=== PATIENT | male | born 1965 | race Caucasian/White ===

== ENCOUNTER 2021-04-05 16:55 | Emergency (ER) | payer OTHER, SELFPAY ==
--- NOTE | 2021-04-05 17:08 | ED.URI ---
HPI - URI/Sore Throat General Chief Complaint: Upper Respiratory Infection Stated Complaint: cough Time Seen by Provider: 04/05/21 17:08 Source: patient Mode of arrival: ambulatory Limitations: no limitations History of Present Illness HPI Narrative: Herberth Is a 56-year-old male patient who ambulated into the [facility]. Patient states he has had a cough since 03/28/2021. Patient denies any other symptoms. Patient states she has been taking day and nighttime cold medicine. And halls cough drops with minimal relief. Patient states he does not want prednisone or albuterol; patient had similar symptoms the beginning of February. Which resolved in 10 days. MD elicited complaint: cough Related Data Home Medications Medication Instructions Recorded Confirmed No Home Medications 04/05/21 04/05/21 Allergies Allergy/AdvReac Type Severity Reaction Status Date / Time No Known Allergies Allergy Verified 04/05/21 17:21 Review of Systems Review of Systems: CONSTITUTIONAL: Denies body aches, fever, chills, or sweats. EYES: Denies visual changes, redness, or discharge. ENT: Denies rhinorrhea, congestion, sore throat, or otalgia. CARDIOVASCULAR: Denies chest pain, palpitations, or edema. RESPIRATORY: +cough denies dyspnea. GASTROINTESTINAL: Denies abdominal pain, nausea, vomiting, or diarrhea. GENITOURINARY: Denies dysuria or hematuria. SKIN: Denies rash, itching, or wounds. MUSCULOSKELETAL: Denies back pain, joint pain, or myalgia. NEUROLOGIC: Denies headache, numbness, tingling, or weakness. PSYCH: Denies depression or anxiety. All systems reviewed & are unremarkable except as noted in HPI and below PMFSH Comments At time of signature, I have reviewed and agree with nursing past medical, surgical, social and family history unless otherwise noted. Please see nursing chart for further information. There is no relevant family history pertinent to the presenting complaint Exam Narrative: GENERAL: Well-appearing, well-nourished, and in no acute distress. HEAD: Normocephalic, atraumatic. EYES: EOMI. No redness or drainage. Conjunctivae normal. ENT: Mucous membranes pink and moist. Nares clear. No rhinorrhea. TMs normal bilaterally. Posterior pharynx with minimal edema and moderate amount of clear postnasal drainage noted.. Uvula midline. NECK: Normal AROM. Supple. No lymphadenopathy. CHEST: No respiratory distress. Clear to auscultation. MUSCULOSKELETAL: No bony tenderness. EXTREMITIES: Normal range of motion. No edema. SKIN: Warm, dry, no rash. Capillary refill normal. Normal skin turgor. NEURO: No focal deficits. Alert and oriented x3. Gait steady. PSYCH: Normal affect. No signs of depression or anxiety. Course Course Emergency Course: Patient was examined. Patient's lungs are completely clear. Patient has no other symptoms besides a cough. Patient was noted to have clear postnasal drainage. Patient states he is not interested in taking albuterol or prednisone for the cough. Patient was not sure to continue [id number] cough medicines and add Zyrtec or Claritin to his regimen daily Level of Care: Express Care Visit MDM - URI/Sore Throat MDM Narrative Medical decision making narrative: Patient's lungs are clear. Patient has had symptoms for 7 days. Patient has no fever, chills, or any other symptoms. Patient does not want prednisone or albuterol. Patient will continue [id number] medications. Patient will follow up with his primary care physician in 10 to 14 days for continued symptoms. Differential Diagnosis Differential diagnosis: Likely upper respiratory infection, otitis media, viral infection, influenza and other (Cough) Medical Records Attestation: I reviewed the patient's medical records. Critical Care Time Critical Care Time Critical Care Time: No Discharge Plan Discharge Clinical Impression: Cough Patient Disposition: Home, Self-Care Condition: Stable Instructions:
[2021-04-05 17:11] VITALS: BP 122/72; PULSE 63; RESP 18; TEMP 36.8; O2SAT 99
== END 2021-04-05 17:27 | disposition home or self-care (01) ==
PROVIDERS: Emergency Provider Nurse Practitioner Family
DX: R05.9 Cough, unspecified (principal)
CPT/HCPCS: 99211; G0463

== ENCOUNTER → 2022-11-27 10:24 | Outpatient (CLI) | payer OTHER, SELFPAY ==
--- NOTE | ~2022-11-27 | MR_ITS ---
EXAMINATION: MR shoulder RT wo con, MR clavicle RT wo con DATE: 11/27/2022 11:07 INDICATION: Right shoulder and clavicle pain TECHNIQUE: 1. Magnetic resonance imaging (MRI) of the right shoulder was performed without intravenous contrast. Sequences included axial PD-weighted FS FSE, coronal oblique PD-weighted FS FSE, coronal oblique T2- weighted FS FSE, sagittal PD-weighted FS FSE, and sagittal T1-weighted SE. 2. MRI of the right clavicle was performed without intravenous contrast. Sequences included large fie ld-of-view coronal T1-weighted FSE including the bilateral clavicles and shoulders and smaller field of view imaging of the right clavicle with axial, sagittal and coronal T1-weighted FSE and fluid sens itive FSE STIR. COMPARISON: None. FINDINGS: Coracoacromial arch: The acromion undersurface is curved in morphology (type II). Mild thickening and tiny enthesopathic o ssicle at the acromial insertion of the coracoacromial ligament. Mild acromioclavicular osteoarthriti s. Rotator cuff: Changes consistent with prior rotator cuff repair with suture anchor sites along the middle and poste rior facets of the greater tuberosity. Mild supraspinatus and infraspinatus tendinopathy without disc rete tear. Mild subscapularis tendinopathy without discrete tear. The teres minor tendon is normal. N ormal rotator cuff muscle bulk and signal. Biceps tendon, glenoid labrum and glenohumeral cartilage: Percent bicipital tenodesis with anchor site below level of the intertubercular groove. Mild partial- thickness cartilage loss with smooth chondral surface and without degenerative subchondral changes al albino the apex and inferomedial aspect of the humeral head as well as along the cephalad third of the g lenoid. There is a tear of the posterior superior to posterior glenoid labrum extending from the 11:0 0 to the 8:00 position. Fluid: Physiologic amount of fluid in the glenohumeral joint and biceps tendon sheath. No loose osteochondr al bodies. Small amount of fluid in the subacromial/subdeltoid bursa consistent with mild bursitis. Bones: Bone alignment is normal. Normal marrow signal with fracture or pathologic marrow replacing process. Minimal osteoarthritis at the bilateral sternoclavicular joints. Moderate osteoarthritis at the left acromioclavicular joint with moderate-sized inferiorly directed osteophytes arising from the lateral head of the left clavicle. Bilateral coracoclavicular ligaments appear normal. The bilateral paracoli c clavicular soft tissues are unremarkable. IMPRESSION: 1. Mild right glenohumeral osteoarthritis with tear of the posterior superior to posterior glenoid la maria elena. 2. Mild tendinopathy without discrete tear at the distal infraspinatus and subscapularis tendons with suggestion of prior rotator cuff repair at the humeral insertion of the distal infraspinatus and pot entially teres minor tendons. 3. Mild osteoarthritis at the right acromioclavicular and bilateral sternoclavicular joints and moder ate osteoarthritis at the left acromioclavicular joint.. 4. Mild subacromial/subdeltoid bursitis. 5. Postoperative change of prior bicipital tenodesis. Reviewed, dictated and finalized at location A. IMPRESSION: 1. Mild right glenohumeral osteoarthritis with tear of the posterior superior t o posterior glenoid labrum. 2. Mild tendinopathy without discrete tear at the distal infraspinatus and subs capularis tendons with suggestion of prior rotator cuff repair at the humeral i nsertion of the distal infraspinatus and potentially teres minor tendons. 3. Mild osteoarthritis at the right acromioclavicular and bilateral sternoclavi cular joints and moderate osteoarthritis at the left acromioclavicular joint.. 4. Mild subacromial/subdeltoid bursitis. 5. Postoperative baumann
== END ==
DX: M19.011 Primary osteoarthritis, right shoulder (principal); S43.431A Superior glenoid labrum lesion of right shoulder, initial encounter; M75.51 Bursitis of right shoulder; M67.813 Other specified disorders of tendon, right shoulder; X58.XXXA Exposure to other specified factors, initial encounter
CPT/HCPCS: 73218; 73221

== ENCOUNTER 2023-01-15 09:27 | Outpatient (CLI) | payer OTHER, SELFPAY ==
--- NOTE | 2023-02-02 23:01 | WPDSLEEPSTUD ---
Sleep Study Date of Study: 01/15/23 Ordering Provider: JAGDISH Ambrocio Interpreting Physician: Cheri Whitfield DO Sleep Study Type: Polysomnogram Height: 1.65 m Weight: 63.503 kg Body Mass Index: 23.3 Neck Circumference (inches): 14 [place]: 7 Reason for Sleep Study Sleep-maintenance insomnia Sleep History The patient is a 57-year-old male night had a study ordered by the Pulmonary group for evaluation of insomnia. The patient rarely awakens from sleep short of breath. He denies awakening at night with heartburn, belching or cough. He occasionally snores and is rarely loud enough that others complain. He rarely has trouble sleeping when he has a cold. He denies waking up gasping for air throughout the night. He denies having breathing problems at night observed by himself or others. He rarely sweats excessively at night. He denies having heart palpitations or irregular heartbeats throughout the night. He occasionally falls asleep during the day and occasionally falls asleep while driving. He denies cataplexy. He occasionally has trouble at school or work due to sleepiness. He rarely experiences vivid dreamlike scenes upon awakening or falling asleep. He denies feeling afraid of going to sleep. He denies having nightmares. He occasionally remembers his dreams. He rarely feels sad, depressed or anxious. He denies having muscular tension. He rarely notices parts of his body jerk. He denies kicking during the night. He rarely has crawling and aching feelings in his legs and rarely has leg pain during the night. He denies grinding his teeth during sleep and denies awakening with morning jaw pain. He is occasionally bothered by pain during the day but denies being awakened by pain during the night. He occasionally wakes up feeling stiff in the morning. He rarely wakes up with sore or achy muscles. He rarely wakes up with pain in the neck, spine or other joints. She goes to bed at 9:00 p.m. on weekdays and between 10-11 p.m. on the weekends. It takes him less than 15 minutes to fall asleep. He wakes up 3-5 times throughout the night for unknown reasons and it can take up to 2 hours to fall back asleep. He wakes up at 5:00 a.m. on weekdays in between 6-8 a.m. on the weekends. He typically at 5-6 hours of sleep per night. He will stay in bed for less than 10 minutes after waking up in the morning. He currently lives with his and adult son. He denies consuming any caffeinated beverages within 2 hours of bedtime. He will engage in physical exercise before bedtime. He will watch television before falling asleep. He will occasionally take naps in the afternoon or the evening on the weekends. He denies consuming any caffeinated beverages throughout the day. He denies tobacco, alcohol and recreational drug use. [facility] Surgical History Surgical History H/O hernia repair History of shoulder surgery (~2015) Rt Hx of plastic surgery Social History Social History Smoking status: Never smoker Medications Home Medications Medication Instructions Recorded Confirmed Type azelaic acid 15 % topical gel 1 applic topical BID 12/18/22 12/22/22 History flu vacc [id number] 6mos up(PF) 60 0.5 ml IM ONCE 12/18/22 12/22/22 History mcg(15 mcgx4)/0.5 mL IM syringe ketoconazole 2 % shampoo 1 applic topical 2XW 12/18/22 12/22/22 History omeprazole 20 mg capsule,delayed 20 mg PO DAILY 12/18/22 12/22/22 History release rosuvastatin 20 mg tablet 20 mg PO DAILY 12/18/22 12/22/22 History eszopiclone 2 mg tablet (Lunesta) 2 mg PO ONCE #1 tablet 12/22/22 12/22/22 Rx Sleep Procedure A full night polysomnogram using the eigital multi-channel system recorded the standard physiologic parameters including EEG, EOG, submentalis EMG, anterior tibialis EMG, EKG, body position, nasal and oral airflow
[2023-02-02 23:11] VITALS: BMI 23.3
== END 2023-01-16 08:01 | disposition home or self-care (01) ==
LOC: ANHCSM 09:28
PROVIDERS: Visit Provider Physician Assistant
DX: G47.10 Hypersomnia, unspecified (principal); G47.9 Sleep disorder, unspecified
CPT/HCPCS: 95810